=== PATIENT | male | born 1975 | race Caucasian/White ===

== ENCOUNTER 2017-05-03 02:05 | Emergency (ER) | payer MEDICAID ==
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
[2017-05-03 03:09] VITALS: BP 118/76
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
== END 2017-05-03 02:57 | disposition home or self-care (01) ==
LOC: MW.ED 02:05
DX: S06.0X9A Concussion with loss of consciousness of unspecified duration, initial encounter (principal); S01.01XA Laceration without foreign body of scalp, initial encounter; F17.210 Nicotine dependence, cigarettes, uncomplicated; Z98.890 Other specified postprocedural states; Z88.6 Allergy status to analgesic agent; Z88.8 Allergy status to other drugs, medicaments and biological substances; Z91.030 Bee allergy status; Y00.XXXA Assault by blunt object, initial encounter
CPT/HCPCS: 70450; 70450-26; 99282; 99284-25

== ENCOUNTER 2017-08-01 17:55 | Emergency (ER) | payer SELFPAY ==
[2017-08-01] MEDS ORDERED: Metoclopramide 10 MG/2 ML SDV IV ONE (18:32)
[2017-08-01] MEDS ORDERED: Sodium Chloride 0.9% 1,000 ML IV ONE ×3 (18:32→19:37)
[2017-08-01] MEDS ORDERED: diphenhydrAMINE 50 MG/ML SDV IVPUSH ONE (18:32)
[2017-08-01] MEDS ORDERED: Sodium Chloride 0.9% 10 ML Syringe FLUSH PRN (18:33)
[2017-08-01] MEDS ORDERED: Sodium Chloride 0.9% 2.5 ML Syringe FLUSH PRN (18:33)
[2017-08-01] MEDS ORDERED: Morphine 2 MG/ML Syringe IVPUSH ONE ×2 (18:33→22:29)
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
--- NOTE | 2017-08-01 19:36 | PCM.SN ---
- Free Text/Narrative Note: called for IV. Patient gives verbal consent. Aseptic technique 20 ga placed in L ) AC x 1 attempt,easily flushes labs obtained, dressing applied, saline lock, RN notified.
[2017-08-01] MEDS ORDERED: Ibuprofen 800 MG Tab PO ONE (19:37)
[2017-08-01 19:50] LABS: CHLORIDE,CL 105 mmol/L (98-110); SODIUM,NA 141 mmol/L (136-146)
[2017-08-01] MEDS ORDERED: Tamsulosin 0.4 MG Cap.ER PO ONE (23:11)
[2017-08-01 23:41] VITALS: BP 125/79
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
== END 2017-08-01 23:18 | disposition home or self-care (01) ==
LOC: MW.ED 17:55
DX: N20.2 Calculus of kidney with calculus of ureter (principal); F17.210 Nicotine dependence, cigarettes, uncomplicated; Z88.6 Allergy status to analgesic agent; Z91.030 Bee allergy status; Z79.899 Other long term (current) drug therapy
CPT/HCPCS: 36415; 74176; 80053; 81001; 83690; 85025; 96361; 96374; 96375; 96376; 99284; A9270; J1200; J2270; J2765; J7040; 36410; 99283

== ENCOUNTER 2017-09-13 20:02 | Emergency (ER) | payer SELFPAY ==
[2017-09-13] MEDS ORDERED: Sodium Chloride 0.9% 1,000 ML IV ONE (20:25)
[2017-09-13] MEDS ORDERED: Morphine 2 MG/ML Syringe IVPUSH ONE (20:27)
--- NOTE | 2017-09-13 20:30 | EDM.PDOC ---
ED HPI GENERAL MEDICAL PROBLEM - General Chief Complaint: Abdominal Pain Stated Complaint: ABDOMINAL PAIN/VOMITING Time Seen by Provider: 09/13/17 20:27 Source of Information: Reports: Patient History Limitations: Reports: No Limitations - History of Present Illness INITIAL COMMENTS - FREE TEXT/NARRATIVE: History of present illness: [42-year-old male presenting with complaints of exquisite abdominal pain. Patient indicates the pain is throughout the abdomen and it is painful to touch. Patient denies nausea vomiting or diarrhea he says that there was one bout of vomiting but he didn't think that was in conjunction with the actual pain.] Review of systems: As per history of present illness and below otherwise all systems reviewed and negative. Past medical history: As per history of present illness and as reviewed below otherwise noncontributory. Surgical history: As per history of present illness and as reviewed below otherwise noncontributory. Social history: No reported history of drug or alcohol abuse. Family history: As per history of present illness and as reviewed below otherwise noncontributory. Physical exam: HEENT: Atraumatic, normocephalic, pupils reactive, negative for conjunctival pallor or scleral icterus, mucous membranes moist, throat clear, neck supple, nontender, trachea midline. Lungs: Clear to auscultation, breath sounds equal bilaterally, chest nontender. Heart: S1S2, regular, negative for clicks, rubs, or JVD. Abdomen: Firm, exquisitely tender abdomen difficult to palpate due to voluntary guarding. Negative for masses or hepatosplenomegaly. Negative for costovertebral tenderness. Pelvis: Stable nontender. Genitourinary: Deferred. Rectal: Deferred. Extremities: Atraumatic, negative for cords or calf pain. Neurovascular unremarkable. Neuro: Awake, alert, oriented. Cranial nerves II through XII unremarkable. Cerebellum unremarkable. Motor and sensory unremarkable throughout. Exam nonfocal. CT showed a renal calculi in the left kidney of 6 mm without obstruction or hydronephrosis. The kidney stones shown previously has passed and the one that we currently observe on CT has no interval change. No further abnormalities noted Diagnostics: [BC, CMP, amylase, lipase, CT of abdomen with contrast] Therapeutics: [IV fluid, morphine] Impression: [Renal calculi] Plan: [Follow-up with primary care] Definitive disposition and diagnosis as appropriate pending reevaluation and review of above. Bilateral Lower Abdominal Pain Score (Numeric/FACES): 8 - Related Data Allergies Allergy/AdvReac Type Severity Reaction Status Date / Time ketorolac tromethamine Allergy Hives Verified 09/13/17 20:21 [From Toradol] ondansetron HCl [From Zofran] Allergy Nausea Verified 09/13/17 20:21 venom-honey bee Allergy Shortness Verified 09/13/17 20:21 [bee venom (honey bee)] of Breath Past Medical History - Past Health History Medical/Surgical History: Denies Medical/Surgical History Genitourinary History: Reports: Renal Calculus Neurological History: Reports: Seizure Other Neuro History: epilepsy Other Psychiatric History: pt refuses to answer Other Hematologic History: pt refuses to answer - Infectious Disease History Infectious Disease History: Reports: Hepatitis C - Past Surgical History Other HEENT Surgeries/Procedures: pt refuses to answer Other Cardiovascular Surgeries/Procedures: pt refuses to answer Other Respiratory Surgeries/Procedures: pt refuses to answer Other GI Surgeries/Procedures: pt refuses to answer Other Male Surgeries/Procedures: pt refuses to answer Other Endocrine Surgeries/Procedures: pt refuses to answer Other Musculoskeletal Surgeries/Procedures:: left leg repair Other Oncologic Surgeries/Procedures: pt refuses to answer Social & Family History - Family History Family Medical History: Unobtainable Other Dermatologic Family History: pt refuses to answer - Tobacco Use Smoking Status *Q: Current Every Day Smoker Years of Tobacco use: 30 Packs/Tins Daily: 1 Used Tobacco, but Quit: No Second Hand Smoke Exposure: Yes - Caffeine Use Caffeine Use: Reports: Coffee - Alcohol Use Days Per Week of Alcohol Use: 7 Number of Drinks Per Day: 6 Total Drinks Per Week: 42 - Recreational Drug Use Recreational Drug Use: No ED ROS GENERAL - Review of Systems Review Of Systems: See Below (History of present illness) ED EXAM, GENERAL - Physical Exam Exam: See Below (See history of present illness) Course - Vital Signs Last Recorded V/S: Last Vital Signs Temp 37.3 C 09/13/17 20:18 Pulse 97 09/13/17 20:18 Resp 20 09/13/17 20:18 BP 110/78 09/13/17 20:18 Pulse Ox 97 09/13/17 20:18 - Orders/Labs/Meds Orders: Active Orders 24 hr Category Date Time Status Abdomen Pelvis w Cont [CT] Stat Exams 09/13/17 20:26 Taken Labs: Laboratory Tests 09/13/17 09/13/17 09/13/17 Range/Units 20:38 20:38 20:49 WBC 7.79 (4.0-11.0) K/uL RBC 4.72 (4.50-5.90) M/uL Hgb 15.3 (13.0-17.0) g/dL Hct 45.1 (38.0-50.0) % MCV 95.6 (80.0-98.0) fL MCH 32.4 H (27.0-32.0) pg MCHC 33.9 (31.0-37.0) g/dL RDW Std Deviation 48.2 (28.0-62.0) fl RDW Coeff of Jose Luis 14 (11.0-15.0) % Plt Count 196 (150-400) K/uL MPV 11.40 (7.40-12.00) fL Neut % (Auto) 53.7 (48.0-80.0) % Lymph % (Auto) 33.5 (16.0-40.0) % [place] % (Auto) 10.5 (0.0-15.0) % Eos % (Auto) 1.9 (0.0-7.0) % Baso % (Auto) 0.4 (0.0-1.5) % Neut # (Auto) 4.2 (1.4-5.7) K/uL Lymph # (Auto) 2.6 H (0.6-2.4) K/uL [place] # (Auto) 0.8 (0.0-0.8) K/uL Eos # (Auto) 0.2 (0.0-0.7) K/uL Baso # (Auto) 0.0 (0.0-0.1) K/uL Nucleated RBC % 0.0 /100WBC Nucleated RBCs # 0 K/uL Sodium 142 (136-146) mmol/L Potassium 4.6 (3.5-5.1) mmol/L Chloride 108 (98-110) mmol/L Carbon Dioxide 25 (21-31) mmol/L BUN 10 (6.0-23.0) mg/dL Creatinine 0.8 (0.6-1.5) mg/dL Est Cr Clr Drug Dosing 116.87 mL/min Estimated GFR (MDRD) > 60.0 ml/min Glucose 77 (60-110) mg/dL Calcium 9.3 (8.8-10.8) mg/dL Total Bilirubin 0.3 (0.1-1.5) mg/dL AST 130 H (5-40) IU/L ALT 239 H (8-54) IU/L Alkaline Phosphatase 29 L (40-150) Total Protein 8.0 (6.0-8.0) g/dL Albumin 4.1 (3.5-5.0) g/dL Globulin 3.9 H (2.0-3.5) g/dL Albumin/Globulin Ratio 1.1 L (1.3-2.8) Amylase 165 H (10-90) U/L Lipase 106 H (7-80) U/L Urine Color YELLOW Urine Appearance CLEAR Urine pH 8.0 (5.0-8.0) Ur Specific [place] 1.010 (1.001-1.035) Urine Protein NEGATIVE (NEGATIVE) mg/dL Urine Glucose (UA) NEGATIVE (NEGATIVE) mg/dL Urine Ketones NEGATIVE (NEGATIVE) mg/dL Urine Occult Blood NEGATIVE (NEGATIVE) Urine Nitrite NEGATIVE (NEGATIVE) Urine Bilirubin NEGATIVE (NEGATIVE) Urine Urobilinogen 0.2 (<2.0) EU/dL Ur Leukocyte Esterase NEGATIVE (NEGATIVE) Urine RBC 0-2 (0-2/HPF) Urine WBC 0-1 (0-5/HPF) Ur Epithelial Cells RARE (NONE-FEW) Urine Bacteria RARE (NEGATIVE) Meds: Medications Discontinued Medications Generic Name Dose Route Start Last Admin Trade Name Disha PRN Reason Stop Dose Admin Sodium Chloride 1,000 mls @ 999 mls/hr 09/13/17 20:25 09/13/17 20:50 Normal Saline IV 09/13/17 21:25 999 mls/hr STAT ONE Administration Iopamidol 100 ml 09/13/17 23:34 09/13/17 23:35 Isovue Multipack-370 (76%) IVPUSH 09/13/17 23:35 100 ml ONETIME STA Administration Morphine Sulfate 2 mg 09/13/17 20:27 09/13/17 20:50 Morphine IVPUSH 09/13/17 20:28 2 mg ONETIME ONE Administration Departure - Departure Time of Disposition: 23:44 Disposition: Home, Self-Care 01 Condition: Good Clinical Impression: Kidney stone - Discharge Information Referrals: PCP,None [Primary Care Provider] - Forms: ED Department Discharge Additional Instructions: The following information is given to patients seen in the emergency department who are being discharged to home. This information is to outline your options for follow-up care. We provide all patients seen in our emergency department with a follow-up referral. The need for follow-up, as well as the timing and circumstances, are variable depending upon the specifics of your emergency department visit. If you don't have a primary care physician on staff, we will provide you with a referral. We always advise you to contact your personal physician following an emergency department visit to inform them of the circumstance of the visit and for follow-up with them and/or the need for any referrals to a consulting specialist. The emergency department will also refer you to a specialist when appropriate. This referral assures that you have the opportunity for follow-up care with a specialist. All of these measure are taken in an effort to provide you with optimal care, which includes your follow-up. Under all circumstances we always encourage you to contact your private physician who remains a resource for coordinating your care. When calling for follow-up care, please make the office aware that this follow-up is from your recent emergency room visit. If for any reason you are refused follow-up, please contact the [facility] Emergency Department at and asked to speak to the emergency department charge nurse. Take medication as directed Follow-up with primary care provider Return to ED as needed as discussed - My Orders Last 24 Hours: My Active Orders 09/13/17 20:26 Abdomen Pelvis w Cont [CT] Stat - Assessment/Plan Last 24 Hours: My Active Orders 09/13/17 20:26 Abdomen Pelvis w Cont [CT] Stat
[2017-09-13 21:13] LABS: CHLORIDE,CL 108 mmol/L (98-110); SODIUM,NA 142 mmol/L (136-146)
[2017-09-13] MEDS ORDERED: Iopamidol 755 MG/ML 500 ML Multipack Bottle IVPUSH STA (23:34)
[2017-09-14 00:13] VITALS: BP 131/74
--- NOTE | 2017-09-14 14:16 | CT ---
EXAM DATE: 09/13/17 PATIENT'S AGE: 42 Patient: CRISTIANE PINEDA Facility: [place], [place] Site . Site : 1975 Study: CT Abdomen/Pelvis [id number]/14/2017 10:53:45 PM Ordering Physician: Doctor Gar Final Report: INDICATION: Lower abdominal pain for 4 days. TECHNIQUE: CT abdomen and pelvis acquired with i.v. 100 mL Isovue 370. Coronal and sagittal reformats were obtained. COMPARISON: Prior CT study dated 08/01/2017. FINDINGS: Lead [place] CT images: Nonobstructive bowel gas pattern. Lower chest: Unremarkable. Liver: Unremarkable. Spleen: Unremarkable. Pancreas: Unremarkable. Gallbladder and bile ducts: Unremarkable. Kidneys: Unremarkable. No hydronephrosis or obstructing renal calculi, sensitivity limited without IV contrast. Stable calcification in the left lower pole, coronal reformat image 51 with estimated size 6 mm. Adrenal glands: Unremarkable. GI tract: Unremarkable. The appendix is normal in appearance and size. Vascular: Unremarkable. Lymph nodes: Unremarkable. Miscellaneous: Unremarkable. No pneumoperitoneum is seen. No significant ascites is noted. Pelvic Organs: Unremarkable. Bones: Unremarkable for age. Moderate degenerative disc disease at L5-S1. IMPRESSION: 1. 6 millimeter nonobstructing left renal calculus, grossly unchanged from 08/01. 2. No hydronephrosis or obstructing ureteral calculi. Interval passage of distal left ureteral calculus from 08/01/2017. 3. No clear etiology identified for patient`s clinical symptoms of lower abdominal pain. Dictated by Cedric Jain MD @ 09/13/2017 11:42:10 PM Dictated by: Cedric Jain MD @ 09/13/2017 23:42:15 (Electronic Signature) Report Signed by Proxy. [facility] HOSPITALFlavia
== END 2017-09-14 00:09 | disposition home or self-care (01) ==
LOC: MW.ED 20:02
DX: N20.0 Calculus of kidney (principal); F17.210 Nicotine dependence, cigarettes, uncomplicated; Z88.6 Allergy status to analgesic agent; Z91.030 Bee allergy status
CPT/HCPCS: 36415; 74177; 80053; 81001; 82150; 83690; 85025; 96361; 96374; 99284; J2270; J7040; Q9967; 99282

== ENCOUNTER 2018-06-20 16:21 | Emergency (ER) | payer MEDICAID ==
[2018-06-20] MEDS ORDERED: Acetaminophen 325 MG Tab PO ONE (16:43)
--- NOTE | 2018-06-20 16:46 | EDM.PDOC ---
ED HPI GENERAL MEDICAL PROBLEM - General Chief Complaint: Lower Extremity Injury/Pain Stated Complaint: FELL AND HURT RT LEG AND MAY HAVE PASSED OUT Time Seen by Provider: 06/20/18 16:30 - History of Present Illness INITIAL COMMENTS - FREE TEXT/NARRATIVE: HISTORY AND PHYSICAL: History of present illness: The patient is a 42-year-old male who has a history of seizure disorder for which he is not taking any of his medications and has been noncompliant for over a year and presents with complaints to pain to the back of his left leg that occurred at a park where he fell. He says he thinks he might be a little dehydrated and he somehow got his leg caught in a hole or another area at the park and fell but he is not sure of the exact events and is worried that he may have had a small seizure triggering this as this is typical for his seizures. He currently is awake alert and denies any other complaints of any other pain and does not feel lightheaded or dizzy. The patient is very vague offering history of today's events and says that sometimes his seizures will present where he will be doing something and then suddenly wake up on the ground. He did not have loss of bowel or bladder and has no other extremity complaints soft tissue complains no recent fevers chills nausea vomiting or diarrhea. Neck pain and no back pain. The patient says that as a youth he did have a trauma to his left lower leg that required surgery as this was an open wound and he said that it was surgically repaired and he does have a scar there. He has no deficits as a result of this. The patient is able to move his foot up and down and has no bony complaint pain at his ankle foot knee or hip and has no sensation or weakness in that leg. On my evaluation he is mostly concerned about his leg and is not certainly focused on the events surrounding that injury. He says he does not have a local provider and has been noncompliant with any medications he has been prescribed. Review of systems: As per history of present illness and below otherwise all systems reviewed and negative. Past medical history: As per history of present illness and as reviewed below otherwise noncontributory. Surgical history: As per history of present illness and as reviewed below otherwise noncontributory. Social history: No reported history of drug or alcohol abuse. Family history: As per history of present illness and as reviewed below otherwise noncontributory. Physical exam: : Well-developed well-nourished thin man who is nontoxic and vital signs are reviewed by me. He moves easily in the ED and has no visible evidence of any trauma. HEENT: Atraumatic, normocephalic, pupils reactive, negative for conjunctival pallor or scleral icterus, mucous membranes moist, throat clear, neck supple, nontender, trachea midline. He has no midline step-offs in his defects of the cervical spine no scalp tenderness or injuries and no soft tissue injuries of his face. Lungs: Clear to auscultation, breath sounds equal bilaterally, chest nontender. Heart: S1S2, regular rate and rhythm no overt murmurs Abdomen: Soft, nondistended, nontender. NABS Pelvis: Stable nontender. No lateral hip tenderness Genitourinary: Deferred. Rectal: Deferred. Extremities: Atraumatic with full range of motion of all extremities with the exception of the left lower leg where he has soft tissue swelling and some tenderness with palpation of the distal aspect of the left lower leg just superior to the Achilles tendon. The Achilles tendon is intact and the patient can dorsi and plantar flex the foot. There is no contusion seen the calf is not swollen or ecchymotic and there is no palpable bony deformities of the left hip femur knee tib-fib ankle or foot. negative for cords or calf pain. Neurovascular unremarkable. Neuro: Awake, alert, oriented. Cranial nerves II through XII unremarkable. Cerebellum unremarkable. Motor and sensory unremarkable throughout. Exam nonfocal. Back: There are no midline step-offs in his defects of the thoracic or lumbar spine and no soft tissue injuries such as abrasions ecchymosis or contusion. Skin: There is no evidence of any trauma seen on the patient head to toe with the exception of the left lower leg as described above. Diagnostics: Accu-Chek orthostatic vitals x-ray of left tib-fib Therapeutics: Tylenol ice pack cam boot crutches Impression: Left lower leg injury Definitive disposition and diagnosis as appropriate pending reevaluation and review of above. left lower leg Pain Score (Numeric/FACES): 8 - Related Data Allergies Allergy/AdvReac Type Severity Reaction Status Date / Time ketorolac tromethamine Allergy Hives Verified 06/20/18 16:23 [From Toradol] ondansetron HCl [From Zofran] Allergy Nausea Verified 06/20/18 16:23 venom-honey bee Allergy Shortness Verified 06/20/18 16:23 [bee venom (honey bee)] of Breath Home Meds: Home Meds levETIRAcetam [Keppra] 1,500 mg PO BID 06/20/18 [History] Past Medical History - Past Health History Medical/Surgical History: Denies Medical/Surgical History HEENT History: Reports: None Cardiovascular History: Reports: None Respiratory History: Reports: None Gastrointestinal History: Reports: None Genitourinary History: Reports: Renal Calculus Musculoskeletal History: Reports: None Neurological History: Reports: Seizure Other Neuro History: epilepsy Psychiatric History: Reports: None Other Psychiatric History: pt refuses to answer Endocrine/Metabolic History: Reports: None Hematologic History: Reports: Anesthesia Reaction Other Hematologic History: pt refuses to answer Immunologic History: Reports: None Oncologic (Cancer) History: Reports: None Dermatologic History: Reports: None - Infectious Disease History Infectious Disease History: Reports: Hepatitis C - Past Surgical History Head Surgeries/Procedures: Reports: None HEENT Surgical History: Reports: Other (See Below) Other HEENT Surgeries/Procedures: pt refuses to answer Cardiovascular Surgical History: Reports: None Respiratory Surgical History: Reports: None GI Surgical History: Reports: Other (See Below) Male Surgical History: Reports: None Endocrine Surgical History: Reports: None Neurological Surgical History: Reports: None Musculoskeletal Surgical History: Reports: None Oncologic Surgical History: Reports: None Social & Family History - Family History Family Medical History: Unobtainable Other Dermatologic Family History: pt refuses to answer - Tobacco Use Smoking Status *Q: Current Every Day Smoker Years of Tobacco use: 30 Packs/Tins Daily: 0.5 - Caffeine Use Caffeine Use: Reports: Coffee - Recreational Drug Use Recreational Drug Use: No Review of Systems - Review of Systems Review Of Systems: ROS reveals no pertinent complaints other than HPI. ED EXAM, GENERAL - Physical Exam Exam: See Below (see Dictation) Course - Vital Signs Last Recorded V/S: Last Vital Signs Temp 36.8 C 06/20/18 16:24 Pulse 94 06/20/18 16:24 Resp 18 06/20/18 16:24 BP 118/76 06/20/18 16:24 Pulse Ox 96 06/20/18 16:24 Orthostatic Blood Pressure [ 109/82 Standing] Orthostatic Blood Pressure [ 121/81 Supine] - Orders/Labs/Meds Orders: Active Orders 24 hr Category Date Time Status Blood Glucose Check, Bedside [RC] ONETIME Care 06/20/18 16:42 Active Orthostatic Vital Signs [RC] ASDIRECTED Care 06/20/18 16:42 Active Tibia Fibula Lt [CR] Stat Exams 06/20/18 16:40 Taken DME for Discharge [COMM] Stat Oth 06/20/18 17:47 Ordered Labs: Laboratory Tests 06/20/18 Range/Units 16:50 POC Glucose 122 H (60-110) mg/dL Meds: Medications Discontinued Medications Generic Name Dose Route Start Last Admin Trade Name Freq PRN Reason Stop Dose Admin Acetaminophen 650 mg 06/20/18 16:43 06/20/18 17:11 Tylenol PO 06/20/18 16:44 650 mg NOW ONE Administration Departure - Departure Time of Disposition: 17:51 Disposition: Home, Self-Care 01 Condition: Good Clinical Impression: Left leg injury Qualifiers: Encounter type: initial encounter Qualified Code(s): S89.92XA - Unspecified injury of left lower leg, initial encounter - Discharge Information Referrals: PCP,None [Primary Care Provider] - Forms: ED Department Discharge Additional Instructions: The following information is given to patients seen in the emergency department who are being discharged to home. This information is to outline your options for follow-up care. We provide all patients seen in our emergency department with a follow-up referral. The need for follow-up, as well as the timing and circumstances, are variable depending upon the specifics of your emergency department visit. If you don't have a primary care physician on staff, we will provide you with a referral. We always advise you to contact your personal physician following an emergency department visit to inform them of the circumstance of the visit and for follow-up with them and/or the need for any referrals to a consulting specialist. The emergency department will also refer you to a specialist when appropriate. This referral assures that you have the opportunity for followup care with a specialist. All of these measure are taken in an effort to provide you with optimal care, which includes your followup. Under all circumstances we always encourage you to contact your private physician who remains a resource for coordinating your care. When calling for followup care, please make the office aware that this follow-up is from your recent emergency room visit. If for any reason you are refused follow-up, please contact the [facility] emergency department at and ask to speak to the emergency department charge nurse. [facility] Specialty Care--Orthopedic clinic Professional Building [address] [place] [address] [address] [place], [place] [id number] [facility] Primary care- Internal Medicine and Family [facility] [address] [place] [id number] Wear cam boot for support and structure and remove or lucent at sleep times. His crutches as you choose for comfort. Ice and elevate the area as much as possible and use [id number] medications for pain. Please call and schedule a follow-up appointment in our clinics using resources given to above. Return to ER as needed and as discussed. Please push hydration - My Orders Last 24 Hours: My Active Orders 06/20/18 16:40 Tibia Fibula Lt [CR] Stat 06/20/18 16:42 Blood Glucose Check, Bedside [RC] ONETIME Orthostatic Vital Signs [RC] ASDIRECTED 06/20/18 17:47 DME for Discharge [COMM] Stat - Assessment/Plan Last 24 Hours: My Active Orders 06/20/18 16:40 Tibia Fibula Lt [CR] Stat 06/20/18 16:42 Blood Glucose Check, Bedside [RC] ONETIME Orthostatic Vital Signs [RC] ASDIRECTED 06/20/18 17:47 DME for Discharge [COMM] Stat
[2018-06-20 18:00] VITALS: BP 115/82
--- NOTE | 2018-06-21 11:05 | CR ---
EXAM DATE: 06/20/18 PATIENT'S AGE: 42 Patient: CRISTIANE PINEDA Facility: [place], [place] Site . Site : 1975 Study: XRay Extremity Left [id number]/21/2018 5:07:01 PM Ordering Physician: Josefa Lovelace Final Report: INDICATION: Trauma, Fell and Hurt Left Leg TECHNIQUE: Tibia-fibula radiograph 4 views left COMPARISON: None FINDINGS: Bone: No acute fractures or aggressive bone lesions are identified. Joint: The visualized knee and ankle joints are unremarkable. No significant joint effusion is seen. Soft tissue: Unremarkable. No radiopaque foreign bodies are seen. IMPRESSION: 1. No acute osseous injuries or abnormalities are noted. Dictated by: Ming De Los Santos MD @ 06/20/2018 17:13:45 (Electronic Signature) Report Signed by Proxy. [facility]
== END 2018-06-20 18:00 | disposition home or self-care (01) ==
LOC: MW.ED 16:21
DX: S89.92XA Unspecified injury of left lower leg, initial encounter (principal); F17.210 Nicotine dependence, cigarettes, uncomplicated; W19.XXXA Unspecified fall, initial encounter; Y92.830 Public park as the place of occurrence of the external cause
CPT/HCPCS: 73590; 82962; 99283; A9270

== ENCOUNTER 2019-03-10 21:40 | Emergency (ER) | payer SELFPAY ==
[2019-03-10] MEDS ORDERED: diphenhydrAMINE 50 MG/ML SDV IVPUSH ONE (21:58)
[2019-03-10] MEDS ORDERED: Sodium Chloride 0.9% 2.5 ML Syringe FLUSH PRN (21:58)
[2019-03-10] MEDS ORDERED: Sodium Chloride 0.9% 10 ML Syringe FLUSH PRN (21:58)
[2019-03-10] MEDS ORDERED: Metoclopramide 10 MG/2 ML SDV IV ONE (21:58)
[2019-03-10] MEDS ORDERED: Morphine 2 MG/ML Syringe IVPUSH ONE (21:58)
[2019-03-10] MEDS ORDERED: Sodium Chloride 0.9% 1,000 ML IV ONE (21:58)
[2019-03-10] MEDS ORDERED: Pantoprazole 40 MG Vial IVPUSH ONE (21:58)
--- NOTE | 2019-03-10 22:02 | EDM.PDOC ---
ED HPI GENERAL MEDICAL PROBLEM - General Chief Complaint: Abdominal Pain Stated Complaint: LEFT SIDE/ABD PAIN Time Seen by Provider: 03/10/19 21:45 - History of Present Illness INITIAL COMMENTS - FREE TEXT/NARRATIVE: HISTORY AND PHYSICAL: History of present illness: The patient is a 43-year-old male with a history of kidney stones chronic lower back pain seizures for which he takes Keppra, but ran out and is not currently taking, and alcohol use/abuse who quit drinking alcohol about 2 years ago and presents with sudden onset of left upper quadrant pain that started while he was at home about 45 minutes prior to coming to the ED. The patient says he had a normal day without any systemic complaints and was just doing normal evening activities when it started and it feels like a squeezing. The patient smokes cigarettes and has had some upper respiratory symptoms but says he has not been coughing very much or very hard and has no fevers chills or cough with phlegm. He has a history of kidney stones and is concerned about that but he has no flank pain and no urinary complaints. He says he's been having normal bowel movements that are not diarrhea black or bloody and he has no history of ulcer disease or other GI problems. The patient denies any history of food intolerance and ate a normal dinner tonight including a roast and some ice cream sandwiches which is not unusual for him. He does not take any medication prior to coming here. The pain does not radiate to the left lower quadrant nor to the right side. The patient denies any trauma history. He says he smokes cigarettes but he does not do any drugs. Review of systems: As per history of present illness and below otherwise all systems reviewed and negative. Past medical history: As per history of present illness and as reviewed below otherwise noncontributory. Surgical history: As per history of present illness and as reviewed below otherwise noncontributory. Social history: No reported history of drug or alcohol abuse. Family history: As per history of present illness and as reviewed below otherwise noncontributory. Physical exam: General: Well-developed well-nourished thin man who is nontoxic and vital signs are noted by me. HEENT: Atraumatic, normocephalic, negative for conjunctival pallor or scleral icterus, mucous membranes moist, throat clear, neck supple, nontender, trachea midline. Lungs: Clear to auscultation, breath sounds equal bilaterally, chest nontender. Heart: S1S2, regular, negative for clicks, rubs, or JVD. Abdomen: Soft, nondistended, with moderate tenderness in the epigastrium and left upper quadrant with some voluntary guarding but no rebound, bowel sounds are slightly hypoactive. Negative for masses or hepatosplenomegaly. Negative for costovertebral tenderness. Pelvis: Stable nontender. Genitourinary: Deferred. Rectal: Deferred. Extremities: Atraumatic, negative for cords or calf pain. Neurovascular unremarkable. Neuro: Awake, alert, oriented. Cranial nerves II through XII unremarkable. Cerebellum unremarkable. Motor and sensory unremarkable throughout. Exam nonfocal. Diagnostics: EKG CBC CMP amylase lipase H. pylori UA with reflex to skin of the abdomen and pelvis 1 view chest x-ray Therapeutics: IV fluids and Reglan Benadryl morphine Protonix Patient and family at bedside are aware of all testing results including the incidental findings on the CAT scan which I have explained to him. There are also aware of the lab tests including the slight elevation of the liver enzymes which is consistent with his history of drinking in the past. They are aware that he needs to increase fiber in his diet push more hydration and follow-up in the clinic and they're comfortable with this care plan. He currently is feeling improved and was resting comfortably when I went in the room. Patient admits that he does not eat a fiber rich diet and he is not good about hydrating which I have encouraged him to do. His pain is significantly improved and he has had no vomiting. Impression: Left upper abdominal pain stable, constipation Definitive disposition and diagnosis as appropriate pending reevaluation and review of above. left abdomen Pain Score (Numeric/FACES): 9 - Related Data Allergies Allergy/AdvReac Type Severity Reaction Status Date / Time ketorolac tromethamine Allergy Hives Verified 03/10/19 21:54 [From Toradol] ondansetron HCl [From Zofran] Allergy Nausea Verified 03/10/19 21:54 venom-honey bee Allergy Shortness Verified 03/10/19 21:54 [bee venom (honey bee)] of Breath Home Meds: Home Meds . [No Known Home Meds] 03/10/19 [History] Past Medical History - Past Health History Medical/Surgical History: Denies Medical/Surgical History HEENT History: Reports: None Cardiovascular History: Reports: None Respiratory History: Reports: None Gastrointestinal History: Reports: None Genitourinary History: Reports: Renal Calculus Musculoskeletal History: Reports: None Neurological History: Reports: Seizure Other Neuro History: epilepsy Psychiatric History: Reports: None Other Psychiatric History: pt refuses to answer Endocrine/Metabolic History: Reports: None Hematologic History: Reports: Anesthesia Reaction Other Hematologic History: pt refuses to answer Immunologic History: Reports: None Oncologic (Cancer) History: Reports: None Dermatologic History: Reports: None - Infectious Disease History Infectious Disease History: Reports: Hepatitis C - Past Surgical History Head Surgeries/Procedures: Reports: None Cardiovascular Surgical History: Reports: None Respiratory Surgical History: Reports: None GI Surgical History: Reports: Other (See Below) Male Surgical History: Reports: None Endocrine Surgical History: Reports: None Neurological Surgical History: Reports: None Musculoskeletal Surgical History: Reports: Other (See Below) Other Musculoskeletal Surgeries/Procedures:: leg sx Oncologic Surgical History: Reports: None Social & Family History - Family History Family Medical History: Noncontributory Other Dermatologic Family History: pt refuses to answer - Tobacco Use Smoking Status *Q: Current Every Day Smoker Years of Tobacco use: 20 Packs/Tins Daily: 1 - Caffeine Use Caffeine Use: Reports: Coffee - Recreational Drug Use Recreational Drug Use: No ED ROS GENERAL - Review of Systems Review Of Systems: ROS reveals no pertinent complaints other than HPI. ED EXAM, GENERAL - Physical Exam Exam: See Below (See dictation) Course - Vital Signs Last Recorded V/S: Last Vital Signs Temp 36.5 C 03/10/19 21:45 Pulse 93 03/10/19 21:45 Resp 18 03/10/19 21:45 BP 125/83 03/10/19 21:45 Pulse Ox 95 03/10/19 21:45 - Orders/Labs/Meds Orders: Active Orders 24 hr Category Date Time Status EKG Documentation Completion [RC] STAT Care 03/10/19 21:46 Active Sodium Chloride 0.9% [Normal Saline] 1,000 ml Med 03/10/19 23:00 Active IV ASDIRECTED Sodium Chloride 0.9% [Saline Flush] Med 03/10/19 21:58 Active 10 ml FLUSH ASDIRECTED PRN Sodium Chloride 0.9% [Saline Flush] Med 03/10/19 21:58 Active 2.5 ml FLUSH ASDIRECTED PRN Saline Lock Insert [OM.PC] Stat Oth 03/10/19 21:57 Ordered Medication Orders Sodium Chloride (Normal Saline) 1,000 mls @ 125 mls/hr IV ASDIRECTED MARCELINO Last Admin: 03/10/19 23:44 Dose: 125 mls/hr Sodium Chloride (Saline Flush) 10 ml FLUSH ASDIRECTED PRN PRN Reason: Keep Vein Open Last Admin: 03/10/19 22:24 Dose: 10 ml Sodium Chloride (Saline Flush) 2.5 ml FLUSH ASDIRECTED PRN PRN Reason: Keep Vein Open Last Admin: 03/10/19 22:23 Dose: 2.5 ml Labs: Laboratory Tests 03/10/19 03/10/19 03/10/19 Range/Units 22:07 22:15 22:15 WBC 8.89 (4.0-11.0) K/uL RBC 4.93 (4.50-5.90) M/uL Hgb 15.9 (13.0-17.0) g/dL Hct 46.4 (38.0-50.0) % MCV 94.1 (80.0-98.0) fL MCH 32.3 H (27.0-32.0) pg MCHC 34.3 (31.0-37.0) g/dL RDW Std Deviation 46.2 (28.0-62.0) fl RDW Coeff of Jose Luis 13 (11.0-15.0) % Plt Count 190 (150-400) K/uL MPV 12.30 H (7.40-12.00) fL Neut % (Auto) 60.1 (48.0-80.0) % Lymph % (Auto) 29.0 (16.0-40.0) % Borden % (Auto) 9.3 (0.0-15.0) % Eos % (Auto) 1.3 (0.0-7.0) % Baso % (Auto) 0.3 (0.0-1.5) % Neut # (Auto) 5.3 (1.4-5.7) K/uL Lymph # (Auto) 2.6 H (0.6-2.4) K/uL Borden # (Auto) 0.8 (0.0-0.8) K/uL Eos # (Auto) 0.1 (0.0-0.7) K/uL Baso # (Auto) 0.0 (0.0-0.1) K/uL Nucleated RBC % 0.0 /100WBC Nucleated RBCs # 0 K/uL Sodium 141 (136-148) mmol/L Potassium 4.1 (3.5-5.1) mmol/L Chloride 104 (98-107) mmol/L Carbon Dioxide 26.9 (21.0-32.0) mmol/L BUN 16 (7.0-18.0) mg/dL Creatinine 1.5 H (0.8-1.3) mg/dL Est Cr Clr Drug Dosing 67.56 mL/min Estimated GFR (MDRD) 50.8 ml/min Glucose 100 (74-106) mg/dL Calcium 9.1 (8.5-10.1) mg/dL Total Bilirubin 0.3 (0.2-1.0) mg/dL AST 125 H (15-37) IU/L ALT 274 H (14-63) IU/L Alkaline Phosphatase 38 L (46-116) U/L Total Protein 8.4 H (6.4-8.2) g/dL Albumin 4.1 (3.4-5.0) g/dL Globulin 4.3 H (2.6-4.0) g/dL Albumin/Globulin Ratio 1.0 (0.9-1.6) Amylase 113 (25-115) U/L Lipase 266 (73-393) U/L Urine Color YELLOW Urine Appearance CLEAR Urine pH 8.0 (5.0-8.0) Ur Specific [place] 1.010 (1.001-1.035) Urine Protein NEGATIVE (NEGATIVE) mg/dL Urine Glucose (UA) NEGATIVE (NEGATIVE) mg/dL Urine Ketones TRACE H (NEGATIVE) mg/dL Urine Occult Blood NEGATIVE (NEGATIVE) Urine Nitrite NEGATIVE (NEGATIVE) Urine Bilirubin NEGATIVE (NEGATIVE) Urine Urobilinogen 1.0 (<2.0) EU/dL Ur Leukocyte Esterase NEGATIVE (NEGATIVE) H. pylori IgG Antibody (NEG) 03/10/19 Range/Units 22:15 WBC (4.0-11.0) K/uL RBC (4.50-5.90) M/uL Hgb (13.0-17.0) g/dL Hct (38.0-50.0) % MCV (80.0-98.0) fL MCH (27.0-32.0) pg MCHC (31.0-37.0) g/dL RDW Std Deviation (28.0-62.0) fl RDW Coeff of Jose Luis (11.0-15.0) % Plt Count (150-400) K/uL MPV (7.40-12.00) fL Neut % (Auto) (48.0-80.0) % Lymph % (Auto) (16.0-40.0) % B[place] % (Auto) (0.0-15.0) % Eos % (Auto) (0.0-7.0) % Baso % (Auto) (0.0-1.5) % Neut # (Auto) (1.4-5.7) K/uL Lymph # (Auto) (0.6-2.4) K/uL Borden # (Auto) (0.0-0.8) K/uL Eos # (Auto) (0.0-0.7) K/uL Baso # (Auto) (0.0-0.1) K/uL Nucleated RBC % /100WBC Nucleated RBCs # K/uL Sodium (136-148) mmol/L Potassium (3.5-5.1) mmol/L Chloride (98-107) mmol/L Carbon Dioxide (21.0-32.0) mmol/L BUN (7.0-18.0) mg/dL Creatinine (0.8-1.3) mg/dL Est Cr Clr Drug Dosing mL/min Estimated GFR (MDRD) ml/min Glucose (74-106) mg/dL Calcium (8.5-10.1) mg/dL Total Bilirubin (0.2-1.0) mg/dL AST (15-37) IU/L ALT (14-63) IU/L Alkaline Phosphatase (46-116) U/L Total Protein (6.4-8.2) g/dL Albumin (3.4-5.0) g/dL Globulin (2.6-4.0) g/dL Albumin/Globulin Ratio (0.9-1.6) Amylase (25-115) U/L Lipase (73-393) U/L Urine Color Urine Appearance Urine pH (5.0-8.0) Ur Specific [place] (1.001-1.035) Urine Protein (NEGATIVE) mg/dL Urine Glucose (UA) (NEGATIVE) mg/dL Urine Ketones (NEGATIVE) mg/dL Urine Occult Blood (NEGATIVE) Urine Nitrite (NEGATIVE) Urine Bilirubin (NEGATIVE) Urine Urobilinogen (<2.0) EU/dL Ur Leukocyte Esterase (NEGATIVE) H. pylori IgG Antibody NEGATIVE (NEG) Meds: Medications Generic Name Dose Route Start Last Admin Trade Name Freq PRN Reason Stop Dose Admin Sodium Chloride 1,000 mls @ 125 mls/hr 03/10/19 23:00 03/10/19 23:44 Normal Saline IV 125 mls/hr ASDIRECTED MARCELINO Administration Sodium Chloride 10 ml 03/10/19 21:58 03/10/19 22:24 Saline Flush FLUSH 10 ml ASDIRECTED PRN Administration Keep Vein Open Sodium Chloride 2.5 ml 03/10/19 21:58 03/10/19 22:23 Saline Flush FLUSH 2.5 ml ASDIRECTED PRN Administration Keep Vein Open Discontinued Medications Generic Name Dose Route Start Last Admin Trade Name Freq PRN Reason Stop Dose Admin Diphenhydramine HCl 25 mg 03/10/19 21:58 03/10/19 22:22 Benadryl IVPUSH 03/10/19 21:59 25 mg ONETIME ONE Administration Sodium Chloride 1,000 mls @ 999 mls/hr 03/10/19 21:58 03/10/19 22:19 Normal Saline IV 03/10/19 22:58 999 mls/hr STAT ONE Administration Iopamidol 75 ml 03/10/19 22:51 03/10/19 23:04 Isovue-300 (61%) IVPUSH 03/10/19 22:52 75 ml ONETIME ONE Administration Metoclopramide HCl 10 mg 03/10/19 21:58 03/10/19 22:24 Reglan IV 03/10/19 21:59 10 mg ONETIME ONE Administration Morphine Sulfate 4 mg 03/10/19 21:58 03/10/19 22:19 Morphine IVPUSH 03/10/19 21:59 4 mg ONETIME ONE Administration Pantoprazole Sodium 80 mg 03/10/19 21:58 03/10/19 22:35 Protonix Iv IVPUSH 03/10/19 21:59 80 mg .BOLUS ONE Administration Departure - Departure Time of Disposition: 00:15 Disposition: Home, Self-Care 01 Condition: Good Clinical Impression: Abdominal pain Qualifiers: Abdominal location: left upper quadrant Qualified Code(s): R10.12 - Left upper quadrant pain Constipation Qualifiers: Constipation type: unspecified constipation type Qualified Code(s): K59.00 - Constipation, unspecified - Discharge Information Referrals: PCP,None [Primary Care Provider] - Forms: ED Department Discharge Additional Instructions: The following information is given to patients seen in the emergency department who are being discharged to home. This information is to outline your options for follow-up care. We provide all patients seen in our emergency department with a follow-up referral. The need for follow-up, as well as the timing and circumstances, are variable depending upon the specifics of your emergency department visit. If you don't have a primary care physician on staff, we will provide you with a referral. We always advise you to contact your personal physician following an emergency department visit to inform them of the circumstance of the visit and for follow-up with them and/or the need for any referrals to a consulting specialist. The emergency department will also refer you to a specialist when appropriate. This referral assures that you have the opportunity for followup care with a specialist. All of these measure are taken in an effort to provide you with optimal care, which includes your followup. Under all circumstances we always encourage you to contact your private physician who remains a resource for coordinating your care. When calling for followup care, please make the office aware that this follow-up is from your recent emergency room visit. If for any reason you are refused follow-up, please contact the [facility] emergency department at and ask to speak to the emergency department charge nurse. [facility] Primary care- Internal Medicine and Family [address] [address] Please try to increase fiber in your diet and use a fiber supplement if you're unable to do this. Push more hydrating liquids and avoid caffeinated products. Please start taking a stool softener and you may also take MiraLAX over-the- counter to get the constipation moving. Please call and schedule a follow-up appointment in the clinic with one of our providers or with your provider next week and return to ER as needed and as discussed - My Orders Last 24 Hours: My Active Orders 03/10/19 21:46 EKG Documentation Completion [RC] STAT 03/10/19 21:57 Saline Lock Insert [OM.PC] Stat 03/10/19 21:58 Sodium Chloride 0.9% [Saline Flush] 10 ml FLUSH ASDIRECTED PRN Sodium Chloride 0.9% [Saline Flush] 2.5 ml FLUSH ASDIRECTED PRN 03/10/19 23:00 Sodium Chloride 0.9% [Normal Saline] 1,000 ml IV ASDIRECTED - Assessment/Plan Last 24 Hours: My Active Orders 03/10/19 21:46 EKG Documentation Completion [RC] STAT 03/10/19 21:57 Saline Lock Insert [OM.PC] Stat 03/10/19 21:58 Sodium Chloride 0.9% [Saline Flush] 10 ml FLUSH ASDIRECTED PRN Sodium Chloride 0.9% [Saline Flush] 2.5 ml FLUSH ASDIRECTED PRN 03/10/19 23:00 Sodium Chloride 0.9% [Normal Saline] 1,000 ml IV ASDIRECTED
[2019-03-10] MEDS ORDERED: Iopamidol 612 MG/ML 75 ML Bottle IVPUSH ONE (22:51)
[2019-03-10] MEDS ORDERED: Sodium Chloride 0.9% 1,000 ML IV SCH (23:00)
--- NOTE | 2019-03-10 23:46 | CR ---
INDICATION: Shortness of breath. COMPARISON: 05/27/2016 FINDINGS: A single AP erect view of the chest was obtained. The lungs remain clear. No focal or diffuse infiltrates are present. The heart remains normal in size. The mediastinum is normal in appearance. The osseous structures are normal in appearance for the patient`s age. IMPRESSION: Normal chest single-view. Dictated by Arthur Mathews MD @ Mar 10 2019 11:39PM Signed by Dr. Arthur Mathews @ Mar 10 2019 11:44PM
--- NOTE | 2019-03-11 00:11 | CT ---
INDICATION: Abdominal pain. COMPARISON: 09/13/2017 TECHNIQUE: CT examination of the abdomen and pelvis was performed with the uneventful intravenous administration of 75 cc of Isovue-300 while 3 mm thick axial sections were obtained from the lung bases through the pubic symphysis. Oral contrast was not administered. Please note that all CT scans at this facility use dose modulation, iterative reconstruction, and/or weight-based dosing when appropriate to reduce radiation dose to as low as reasonably achievable. FINDINGS: There is a moderate amount of fecal material distributed throughout the colon and rectum consistent with constipation. This is increased compared to the previous study, especially in the pelvis. In the abdomen, the liver, spleen, pancreas, and adrenals are normal in appearance. The kidneys are normal in appearance. The previously seen nonobstructive calculus in the lower pole of left kidney is no longer present. The gallbladder is normal in appearance. The abdominal aorta is normal in caliber with no sign of dilatation. There is no sign of retroperitoneal mass or adenopathy. The stomach, loops of small bowel, and colon in the abdomen are normal in appearance. In the pelvis, the appendix is normal in appearance with no sign of inflammatory process. The loops of small bowel and colon in the pelvis are normal in appearance. The prostate is normal in appearance. The urinary bladder is normal in appearance. There is no sign of pelvic or inguinal mass or adenopathy. There continues to be mild patchy infiltrate in the posterior right lung base consistent with scarring from previous inflammatory disease. There is no change in prominent L5-S1 disc degenerative disease. There is no change in prominent anterior angulation of the distal 3 coccygeal segments consistent with an old, healed coccygeal fracture. IMPRESSION: Increased moderate amount of fecal material distributed throughout the colon and rectum consistent with constipation. CT of the abdomen shows resolution of the previously seen nonobstructive calculus in the lower pole of the left kidney. Normal CT of the pelvis with contrast. Please note that all CT scans at this facility use dose modulation, iterative reconstruction, and/or weight-based dosing when appropriate to reduce radiation dose to as low as reasonably achievable. Dictated by Arthur Mathews MD @ Mar 10 2019 11:58PM Signed by Dr. Arthur Mathews @ Mar 11 2019 12:09AM
[2019-03-11 00:23] VITALS: BP 117/79
== END 2019-03-11 00:20 | disposition home or self-care (01) ==
LOC: MW.ED 21:40
DX: K59.00 Constipation, unspecified (principal); F17.210 Nicotine dependence, cigarettes, uncomplicated; Z88.6 Allergy status to analgesic agent; Z91.030 Bee allergy status
CPT/HCPCS: 36415; 71045; 74177; 80053; 81003; 82150; 83690; 85025; 86677; 93005; 96361; 96374; 96375; 99284; C9113; J1200; J2270; J2765; J7040; Q9967

== ENCOUNTER 2019-08-03 13:33 | Emergency (ER) | payer SELFPAY ==
--- NOTE | 2019-08-03 13:37 | EDM.PDOC ---
ED HPI GENERAL MEDICAL PROBLEM - General Stated Complaint: EYE PAIN, HEADACHE, TROUBLE BREATHING, BODY ACHES Time Seen by Provider: 08/03/19 13:37 Source of Information: Reports: Patient History Limitations: Reports: No Limitations - History of Present Illness INITIAL COMMENTS - FREE TEXT/NARRATIVE: HISTORY AND PHYSICAL: History of present illness: Patient is a 43-year-old male presenting to the emergency room for complaints of headache and abdominal pain. Patient states all of his symptoms started approximately 2-3 days ago and have been constant. He rates his generalized headache at a 6 out of 10 describing it like "feels like someone is hitting me on the head . . . I [also] have pressure on my eyes". States the headache " moves around" to different locations on scalp. He denies any recent head injury. He also has LUQ abdominal pain rated at an 8 out of 10 that radiates to the back. States the pain feels similar to previous kidney stones. Complaining of sinus pressure, sore throat, shortness of breath, subjective fever/chills, and a clear productive cough with a runny nose. He states there are no alleviating factors to his symptoms as he has tried taking DayQuil with no improvement for his symptoms. Denies aggravating factors. He is not taking any other medications. Patient denies any change in vision, syncope or near syncope. Denies any chest pain, nausea, vomiting, diarrhea, constipation or dysuria. Has not noted any blood in urine or stool. Patient has been eating and drinking appropriately. Past medical history of kidney stones, chronic back pain, seizures (has not taken Keppra in several years), alcohol abuse (no ETOH in 5 years) and hepatitis C. Review of systems: As per history of present illness and below otherwise all systems reviewed and negative. Past medical history: As per history of present illness and as reviewed below otherwise noncontributory. Surgical history: As per history of present illness and as reviewed below otherwise noncontributory. Social history: See social history for further information Family history: As per history of present illness and as reviewed below otherwise noncontributory. Physical exam: General: Patient is a well-groomed and well-developed 43-year-old female. Alert and oriented. Nontoxic in appearance and in no acute distress. Vital signs have been reviewed by me. HEENT: Maxillary sinus tenderness bilaterally, normocephalic, pupils equal and reactive bilaterally, negative for conjunctival pallor or scleral icterus, mucous membranes moist, nasal congestion noted, TMs normal bilaterally, throat clear, neck supple, mildly tender, trachea midline. No drooling or trismus noted. No meningeal signs. No hot potato voice noted. Lungs: Clear to auscultation, breath sounds equal bilaterally, chest nontender. Heart: S1S2, regular rate and rhythm without overt murmur Abdomen: Soft, nondistended, mild tenderness to palpation in LUQ. Negative for masses or hepatosplenomegaly. Left sided costovertebral tenderness. Skin: Intact, warm, dry. No lesions or rashes noted. Extremities: Atraumatic, moves all extremities per self without difficulty or deficits, negative for cords or calf pain. Neurovascular unremarkable. Neuro: Awake, alert, oriented. Cranial nerves II through XII unremarkable. Cerebellum unremarkable. Motor and sensory unremarkable throughout. Exam nonfocal. Notes: CT of the abdomen and pelvis shows mild increased stool throughout the colon. No renal stone, ureteral dilatation noted. There are some nonacute incidental findings noted. Lab work is unremarkable with the exception of elevated transaminases, he has had a history of hepatitis Supportive care measures were reviewed and discussed. Voices understanding and is agreeable to plan of care. Denies any further questions or concerns at this time. Diagnostics: CBC, CMP, Influenza, CT Abd/Pelvis Therapeutics: IV fluids Prescription: Augmentin Impression: Sinusitis Sinus headache Elevated Transaminases Plan: 1. Take the antibiotic as directed. Please use Tylenol and/or Ibuprofen as needed for pain and fever management. 2. Get plenty of Rest. Encourage fluids to prevent dehydration. 3. You need to follow up with primary care to have your liver enzymes reevaluated, these are steadily increasing since your last evaluation in 02/2019. 4. Please follow up with your primary care provider. Return to the ED as needed as discussed. Definitive disposition and diagnosis as appropriate pending reevaluation and review of above. Headache Pain Score (Numeric/FACES): 3 - Related Data Allergies Allergy/AdvReac Type Severity Reaction Status Date / Time ketorolac tromethamine Allergy Hives Verified 08/03/19 13:59 [From Toradol] ondansetron HCl [From Zofran] Allergy Nausea Verified 08/03/19 13:59 venom-honey bee Allergy Shortness Verified 08/03/19 13:59 [bee venom (honey bee)] of Breath Home Meds: Home Meds Amoxicillin/Clavulanate K [Augmentin 875-125 MG] 1 tab PO BID 10 Days #20 tablet 08/03/19 [Rx] Past Medical History - Past Health History Medical/Surgical History: Denies Medical/Surgical History HEENT History: Reports: None Cardiovascular History: Reports: None Respiratory History: Reports: None Gastrointestinal History: Reports: None Genitourinary History: Reports: Renal Calculus Musculoskeletal History: Reports: None Neurological History: Reports: Seizure Other Neuro History: epilepsy Psychiatric History: Reports: None Other Psychiatric History: pt refuses to answer Endocrine/Metabolic History: Reports: None Hematologic History: Reports: Anesthesia Reaction Other Hematologic History: pt refuses to answer Immunologic History: Reports: None Oncologic (Cancer) History: Reports: None Dermatologic History: Reports: None - Infectious Disease History Infectious Disease History: Reports: Hepatitis C - Past Surgical History Head Surgeries/Procedures: Reports: None Cardiovascular Surgical History: Reports: None Respiratory Surgical History: Reports: None GI Surgical History: Reports: Other (See Below) Male Surgical History: Reports: None Endocrine Surgical History: Reports: None Neurological Surgical History: Reports: None Musculoskeletal Surgical History: Reports: Other (See Below) Other Musculoskeletal Surgeries/Procedures:: leg sx Oncologic Surgical History: Reports: None Social & Family History - Family History Family Medical History: Noncontributory Other Dermatologic Family History: pt refuses to answer - Caffeine Use Caffeine Use: Reports: Coffee ED ROS GENERAL - Review of Systems Review Of Systems: ROS reveals no pertinent complaints other than HPI. ED EXAM, GENERAL - Physical Exam Exam: See Below (See dictation) Course - Vital Signs Last Recorded V/S: Last Vital Signs Temp 97.1 F 08/03/19 13:59 Pulse 88 08/03/19 13:59 Resp 18 08/03/19 13:59 BP 139/99 H 08/03/19 13:59 Pulse Ox 98 08/03/19 13:59 - Orders/Labs/Meds Orders: Active Orders 24 hr Category Date Time Status CULTURE STREP A CONFIRMATION [RM] Stat Lab 08/03/19 14:28 Results STREP SCRN A RAPID W CULT CONF [RM] Stat Lab 08/03/19 14:28 Results STREP SCRN A RAPID W CULT CONF [RM] Stat Lab 08/03/19 14:31 Ordered UA RFX NANCY AND CULT IF INDIC [URIN] Stat Lab 08/03/19 13:52 Ordered Labs: Laboratory Tests 08/03/19 08/03/19 Range/Units 14:28 14:28 WBC 8.24 (4.0-11.0) K/uL RBC 5.23 (4.50-5.90) M/uL Hgb 16.9 (13.0-17.0) g/dL Hct 49.9 (38.0-50.0) % MCV 95.4 (80.0-98.0) fL MCH 32.3 H (27.0-32.0) pg MCHC 33.9 (31.0-37.0) g/dL RDW Std Deviation 48.9 (28.0-62.0) fl RDW Coeff of Jose Luis 14 (11.0-15.0) % Plt Count 169 (150-400) K/uL MPV 12.30 H (7.40-12.00) fL Add Manual Diff YES Neutrophils % (Manual) 62 (48.0-80.0) % Lymphocytes % (Manual) 28 (16.0-40.0) % Monocytes % (Manual) 8 (0.0-15.0) % Basophils % (Manual) 2 H (0.0-1.5) % Nucleated RBC % 0.0 /100WBC Absolute Seg Neuts 5.1 (1.4-5.7) Lymphocytes # (Manual) 2.3 (0.6-2.4) Monocytes # (Manual) 0.7 (0.0-0.8) Basophils # (Manual) 0.2 H (0.0-0.1) Nucleated RBCs # 0 K/uL Sodium 138 (136-148) mmol/L Potassium 4.2 (3.5-5.1) mmol/L Chloride 103 (98-107) mmol/L Carbon Dioxide 27.1 (21.0-32.0) mmol/L BUN 7 (7.0-18.0) mg/dL Creatinine 0.8 (0.8-1.3) mg/dL Est Cr Clr Drug Dosing 114.00 mL/min Estimated GFR (MDRD) > 60.0 ml/min Glucose 92 (74-106) mg/dL Calcium 8.8 (8.5-10.1) mg/dL Total Bilirubin 0.4 (0.2-1.0) mg/dL AST 188 H (15-37) IU/L ALT 351 H (14-63) IU/L Alkaline Phosphatase 41 L (46-116) U/L Total Protein 8.4 H (6.4-8.2) g/dL Albumin 3.7 (3.4-5.0) g/dL Globulin 4.7 H (2.6-4.0) g/dL Albumin/Globulin Ratio 0.8 L (0.9-1.6) Meds: Medications Discontinued Medications Generic Name Dose Route Start Last Admin Trade Name Freq PRN Reason Stop Dose Admin Acetaminophen/Codeine Phosphate 1 tab 08/03/19 14:44 08/03/19 14:55 Tylenol With Codeine No.3 300mg/30mg PO 08/03/19 14:45 1 tab ONETIME ONE Administration Sodium Chloride 1,000 mls @ 999 mls/hr 08/03/19 13:52 08/03/19 14:55 Normal Saline IV 08/03/19 14:52 999 mls/hr STAT ONE Administration Departure - Departure Time of Disposition: 15:22 Disposition: Home, Self-Care 01 Clinical Impression: Sinus headache, Elevated transaminase level Sinusitis Qualifiers: Sinusitis location: maxillary Chronicity: unspecified Qualified Code(s): J32.0 - Chronic maxillary sinusitis - Discharge Information Prescriptions: Amoxicillin/Clavulanate K [Augmentin 875-125 MG] 1 tab PO BID 10 Days #20 tablet Instructions: Sinusitis, Adult Referrals: PCP,Unknown [Primary Care Provider] - Additional Instructions: The following information is given to patients seen in the emergency department who are being discharged to home. This information is to outline your options for follow-up care. We provide all patients seen in our emergency department with a follow-up referral. The need for follow-up, as well as the timing and circumstances, are variable depending upon the specifics of your emergency department visit. If you don't have a primary care physician on staff, we will provide you with a referral. We always advise you to contact your personal physician following an emergency department visit to inform them of the circumstance of the visit and for follow-up with them and/or the need for any referrals to a consulting specialist. The emergency department will also refer you to a specialist when appropriate. This referral assures that you have the opportunity for follow-up care with a specialist. All of these measure are taken in an effort to provide you with optimal care, which includes your follow-up. Under all circumstances we always encourage you to contact your private physician who remains a resource for coordinating your care. When calling for follow-up care, please make the office aware that this follow-up is from your recent emergency room visit. If for any reason you are refused follow-up, please contact the [facility] Department at and asked to speak to the emergency department charge nurse. [facility] [address] [place] [id number] [facility] [address] [place] [id number] 1. Take the antibiotic as directed. Please use Tylenol and/or Ibuprofen as needed for pain and fever management. 2. Get plenty of Rest. Encourage fluids to prevent dehydration. 3. You need to follow up with primary care to have your liver enzymes reevaluated, these are steadily increasing since your last evaluation in 02/2019. 4. Please follow up with your primary care provider. Return to the ED as needed as discussed. - My Orders Last 24 Hours: My Active Orders 08/03/19 13:52 UA RFX NANCY AND CULT IF INDIC [URIN] Stat 08/03/19 14:28 CULTURE STREP A CONFIRMATION [RM] Stat STREP SCRN A RAPID W CULT CONF [RM] Stat 08/03/19 14:31 STREP SCRN A RAPID W CULT CONF [RM] Stat - Assessment/Plan Last 24 Hours: My Active Orders 08/03/19 13:52 UA RFX NANCY AND CULT IF INDIC [URIN] Stat 08/03/19 14:28 CULTURE STREP A CONFIRMATION [RM] Stat STREP SCRN A RAPID W CULT CONF [RM] Stat 08/03/19 14:31 STREP SCRN A RAPID W CULT CONF [RM] Stat
[2019-08-03] MEDS ORDERED: Sodium Chloride 0.9% 1,000 ML IV ONE (13:52)
[2019-08-03] MEDS ORDERED: Acetaminophen/Codeine 300-30 MG Tab PO ONE (14:44)
[2019-08-03 15:07] LABS: BLOOD UREA NITROGEN,BUN 7 mg/dL (7.0-18.0); CARBON DIOXIDE,CO2 27.1 mmol/L (21.0-32.0); CHLORIDE,CL 103 mmol/L (98-107); GLUCOSE RANDOM 92 mg/dL (74-106); POTASSIUM,K 4.2 mmol/L (3.5-5.1); SODIUM,NA 138 mmol/L (136-148)
--- NOTE | 2019-08-03 15:15 | CT ---
CT abdomen and pelvis Technique: Multiple axial sections were obtained from above the dome of the diaphragm inferiorly through the pubic symphysis. Intravenous and oral contrast has not been given. Study performed as a ureteral stone protocol. Comparison: Previous CT abdomen and pelvis study of 03/10/19. Findings: Interstitial change is seen within both lung bases, worse on the right side. These findings are stable from previous exam and are felt compatible with interstitial fibrosis. Kidneys show no abnormal calcifications. No ureteral dilatation or ureteral calcifications are seen. No bladder calculi are seen. Several calcifications within the prostate gland are seen. Liver contains no focal abnormality. Spleen appears within normal limits. Adrenal glands show no nodule. Pancreas is within normal limits. Gallbladder contains no calcified gallstones. Aorta shows minimal atherosclerotic calcification without aneurysm. No retroperitoneal adenopathy or mesenteric abnormalities are seen. Appendix is seen which is normal in size. No pelvic mass or adenopathy is seen. No free fluid or inflammatory changes seen. Mild increased stool is seen throughout the colon. Bone window settings were reviewed which shows severe disc space narrowing at L5 -S1 with vacuum phenomena. Impression: 1. Mild increased stool throughout the colon. 2. No renal calculi, ureteral dilatation or ureteral stone is seen. 3. Other findings which are felt to be nonacute and incidental as noted above. Diagnostic code #2 MTDD
[2019-08-03 19:05] VITALS: BP 122/79; PULSE 70
== END 2019-08-03 16:28 | disposition home or self-care (01) ==
LOC: MW.ED 13:33
DX: J32.0 Chronic maxillary sinusitis (principal); R74.0 Nonspecific elevation of levels of transaminase and lactic acid dehydrogenase [LDH]; Z88.6 Allergy status to analgesic agent; Z88.8 Allergy status to other drugs, medicaments and biological substances; Z91.030 Bee allergy status
CPT/HCPCS: 36415; 74176; 80053; 81003; 85025; 87081; 87804; 87880; 96360; 99285; A9270; J7040; 99284

== ENCOUNTER 2021-03-27 22:55 | Emergency (ER) | payer SELFPAY ==
[2021-03-27 23:42] VITALS: BP 124/81; PULSE 81
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
[2021-03-28] MEDS ORDERED: Acetaminophen 325 MG Tab PO ONE (00:16)
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
== END 2021-03-28 01:31 | disposition home or self-care (01) ==
LOC: MW.ED 22:55
DX: S63.91XA Sprain of unspecified part of right wrist and hand, initial encounter (principal); G40.909 Epilepsy, unspecified, not intractable, without status epilepticus; Z88.6 Allergy status to analgesic agent; Z88.8 Allergy status to other drugs, medicaments and biological substances; Z91.030 Bee allergy status; Z72.0 Tobacco use; Y04.0XXA Assault by unarmed brawl or fight, initial encounter
CPT/HCPCS: 73130; 99283; A9270; 99282

== ENCOUNTER 2021-08-27 07:25 | Emergency (ER) | payer SELFPAY ==
[2021-08-27 07:53] VITALS: BP 136/92; PULSE 95
[2021-08-27] MEDS ORDERED: Sodium Chloride 0.9% 1,000 ML IV ONE (08:07)
[2021-08-27] MEDS ORDERED: Metoclopramide 10 MG/2 ML SDV IVPUSH ONE (08:08)
[2021-08-27] MEDS ORDERED: Ibuprofen 800 MG Tab PO ONE (08:28)
[2021-08-27] MEDS ORDERED: Acetaminophen 325 MG Tab PO ONE (08:29)
--- NOTE | 2021-08-27 09:45 | EDM.PDOC ---
ED HPI GENERAL MEDICAL PROBLEM - General Chief Complaint: Back Pain or Injury Stated Complaint: SIDE PAIN/LEFT SIDE Time Seen by Provider: 08/27/21 07:49 Source of Information: Reports: Patient - History of Present Illness INITIAL COMMENTS - FREE TEXT/NARRATIVE: 46-year-old male presents complaining of left flank pain. He states it feels similar to when he had kidney stones in the past. He is not taking any medications for this. There is some associated nausea. He states that it feels like a vice to the left side of the stomach. No fevers. He is nausea. No diarrhea. No pain with urination or blood in the urine. No exacerbating or leaving factors. Patient states previously had broken his back. There is no bowel or bladder dysfunction or leg weakness. L side Pain Score (Numeric/FACES): 8 - Related Data Allergies Allergy/AdvReac Type Severity Reaction Status Date / Time ketorolac tromethamine Allergy Hives Verified 08/27/21 07:50 [From Toradol] ondansetron HCl [From Zofran] Allergy Nausea Verified 08/27/21 07:50 venom-honey bee Allergy Shortness Verified 08/27/21 07:50 [bee venom (honey bee)] of Breath Home Meds: Home Meds . [No Known Home Meds] 08/27/21 [History] Past Medical History - Past Health History Medical/Surgical History: Denies Medical/Surgical History HEENT History: Reports: None Cardiovascular History: Reports: None Respiratory History: Reports: None Gastrointestinal History: Reports: None Genitourinary History: Reports: Renal Calculus Musculoskeletal History: Reports: Fracture, Other (See Below) Other Musculoskeletal History: L leg and back fx Neurological History: Reports: Seizure, Other (See Below) Other Neuro History: epilepsy Psychiatric History: Reports: None Other Psychiatric History: pt refuses to answer Endocrine/Metabolic History: Reports: None Hematologic History: Reports: None Other Hematologic History: pt refuses to answer Immunologic History: Reports: None Oncologic (Cancer) History: Reports: None Dermatologic History: Reports: None - Infectious Disease History Infectious Disease History: Reports: Chicken Pox, Hepatitis C - Past Surgical History Head Surgeries/Procedures: Reports: None HEENT Surgical History: Reports: None Cardiovascular Surgical History: Reports: None Respiratory Surgical History: Reports: None GI Surgical History: Reports: None Male Surgical History: Reports: None Endocrine Surgical History: Reports: None Neurological Surgical History: Reports: None Musculoskeletal Surgical History: Reports: Other (See Below) Other Musculoskeletal Surgeries/Procedures:: L leg sx Oncologic Surgical History: Reports: None Social & Family History - Family History Family Medical History: No Pertinent Family History Other Dermatologic Family History: pt refuses to answer - Tobacco Use Tobacco Use Status *Q: Current Some Day Tobacco User Years of Tobacco use: 30 Packs/Tins Daily: 1 - Caffeine Use Caffeine Use: Reports: Coffee - Recreational Drug Use Recreational Drug Use: No ED ROS GENERAL - Review of Systems Review Of Systems: Comprehensive ROS is negative, except as noted in HPI. ED EXAM, GENERAL - Physical Exam Exam: See Below Free Text/Narrative:: CONSTITUTIONAL: well appearing in no acute distress SKIN: dry, and intact without rash HENT: Normocephalic, atraumatic, NECK: normal range of motion PULMONARY: normal chest rise and fall, no respiratory distress or stridor GI: Patient with mild left-sided flank tenderness. Mild left abdominal tende rness NEUROLOGIC: normal speech, moves all extremities, grossly non-focal MUSCULOSKELETAL: no gross deformities, atraumatic PSYCHIATRIC: normal mood and affect Course - Vital Signs Text/Narrative:: Differential diagnosis: Kidney stone, diverticulitis, pyelonephritis, radiculopathy, spinal cord pathology, other Patient presents to the emergency department as outlined above. Patient unfortunately eloped the emergency department without complete evaluation and treatment Last Recorded V/S: Last Vital Signs Temp 36.3 C 08/27/21 07:50 Pulse 95 08/27/21 07:50 Resp 16 08/27/21 07:50 BP 136/92 H 08/27/21 07:50 Pulse Ox 96 08/27/21 07:50 - Orders/Labs/Meds Orders: Active Orders 24 hr Category Date Time Status CBC WITH AUTO DIFF [HEME] Stat Lab 08/27/21 08:07 Ordered COMPREHENSIVE METABOLIC PN,CMP [CHEM] Stat Lab 08/27/21 08:06 Ordered LIPASE [CHEM] Stat Lab 08/27/21 08:06 Ordered Labs: Laboratory Tests 08/27/21 Range/Units 08:11 Urine Color DARK YELLOW Urine Appearance CLEAR Urine pH 6.0 (5.0-8.0) Ur Specific [place] >= 1.030 (1.001-1.035) Urine Protein TRACE H (NEGATIVE) mg/dL Urine Glucose (UA) NEGATIVE (NEGATIVE) mg/dL Urine Ketones NEGATIVE (NEGATIVE) mg/dL Urine Occult Blood NEGATIVE (NEGATIVE) Urine Nitrite NEGATIVE (NEGATIVE) Urine Bilirubin NEGATIVE (NEGATIVE) Urine Urobilinogen 0.2 (<2.0) EU/dL Ur Leukocyte Esterase NEGATIVE (NEGATIVE) Urine RBC NONE SEEN (0-2/HPF) Urine WBC 0-5 (0-5/HPF) Ur Epithelial Cells RARE (NONE-FEW) Urine Bacteria NOT SEEN (NEGATIVE) Urine Mucus LIGHT (NONE-MOD) Meds: Medications Discontinued Medications Generic Name Dose Route Start Last Admin Trade Name Freq PRN Reason Stop Dose Admin Acetaminophen 975 mg 08/27/21 08:29 Acetaminophen 325 Mg Tab PO 08/27/21 08:30 NOW ONE Sodium Chloride 1,000 mls @ 999 mls/hr 08/27/21 08:07 Normal Saline IV 08/27/21 09:07 .BOLUS ONE Ibuprofen 800 mg 08/27/21 08:28 Ibuprofen 800 Mg Tab PO 08/27/21 08:29 ONETIME ONE Metoclopramide HCl 10 mg 08/27/21 08:08 Metoclopramide 10 Mg/2 Ml Sdv IVPUSH 08/27/21 08:09 ONETIME ONE Departure - Departure Time of Disposition: 09:44 Disposition: Eloped 07 Condition: Good Clinical Impression: Back pain - Discharge Information Referrals: PCP,None [Primary Care Provider] - Sepsis Event Note (ED) - Evaluation Sepsis Screening Result: No Definite Risk - Focused Exam Vital Signs: Vital Signs Temp Pulse Resp BP Pulse Ox 08/27/21 07:50 36.3 C 95 16 136/92 H 96 - My Orders Last 24 Hours: My Active Orders 08/27/21 08:06 COMPREHENSIVE METABOLIC PN,CMP [CHEM] Stat LIPASE [CHEM] Stat 08/27/21 08:07 CBC WITH AUTO DIFF [HEME] Stat - Assessment/Plan Last 24 Hours: My Active Orders 08/27/21 08:06 COMPREHENSIVE METABOLIC PN,CMP [CHEM] Stat LIPASE [CHEM] Stat 08/27/21 08:07 CBC WITH AUTO DIFF [HEME] Stat
== END 2021-08-27 09:45 | disposition left against medical advice (07) ==
LOC: MW.ED 07:25
DX: M54.9 Dorsalgia, unspecified (principal); Z72.0 Tobacco use; Z88.5 Allergy status to narcotic agent; Z88.8 Allergy status to other drugs, medicaments and biological substances; Z91.030 Bee allergy status
CPT/HCPCS: 81001; 96374; 99284-25